=== PATIENT | female | born 1970 | race African-American/Black ===

== ENCOUNTER 2016-11-05 23:58 | Emergency (ER) | payer MEDICAID, OTHER ==
[~2016-11-05] VITALS: Ht 157.5 cm; Wt 87.0 kg
[2016-11-06] MEDS ORDERED: HYDROCODONE/ACETAMINOPHEN 5/325MG TABLET PO ONE (04:45)
[2016-11-06 08:40] VITALS: BP 125/72
== END 2016-11-06 09:01 | disposition home or self-care (01) ==
LOC: ER 11-06 03:05
DX: M54.2 Cervicalgia (principal); V43.62XA Car passenger injured in collision with other type car in traffic accident, initial encounter; Y93.89 Activity, other specified; Y92.89 Other specified places as the place of occurrence of the external cause; Y99.8 Other external cause status
CPT/HCPCS: 72100; 72125; 81025; 99284

== ENCOUNTER 2024-02-23 16:44 | Emergency (ER) | payer MEDICAID, OTHER ==
[~2024-02-23] VITALS: Ht 160 cm; Wt 90.0 kg
[2024-02-23 16:50] VITALS: O2SAT 100
[2024-02-23 17:09] VITALS: BP 114/69; PULSE 82; RESP 16; TEMP 98.4; O2SAT 97
[2024-02-23] MEDS: ACETAMINOPHEN 325MG TABLET PO ONE (20:07)
[2024-02-23] MEDS: IBUPROFEN 800MG TABLET PO ONE (20:07)
== END 2024-02-23 20:11 | disposition home or self-care (01) ==
LOC: ER 16:44
DX: S63.501A Unspecified sprain of right wrist, initial encounter (principal); I10 Essential (primary) hypertension; W10.9XXA Fall (on) (from) unspecified stairs and steps, initial encounter; Y93.01 Activity, walking, marching and hiking; Y92.89 Other specified places as the place of occurrence of the external cause; Y99.8 Other external cause status
CPT/HCPCS: 73030; 73060; 73070; 73090; 73100; 73120; 99284; Z7610